=== PATIENT | male | born 1985 | race American Indian/Alaskan Native ===

== ENCOUNTER 2022-08-12 16:57 | Emergency (ER) | payer SELFPAY ==
[2022-08-12] MEDS ORDERED: SODIUM CHLORIDE 0.9% 1000 ML 1,000 ML IV ONE ×2 (17:09)
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
[2022-08-12] MEDS ORDERED: ceFAZolin/NS 2 GM/100 ML 2 GM/100 ML BAG IV ONE (17:22)
[2022-08-12] MEDS ORDERED: TETANUS,DIPH,PERTUSS(ACELL) VACCINE 0.5 ML SYRINGE IM ONE (17:22)
[2022-08-12] MEDS ORDERED: HYDROmorphone 1 MG/1 ML INJ IV ONE (17:27)
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
[2022-08-12 17:39] LABS: Hematocrit 38.1 % (35.5-45.6); Hemoglobin 12.2 gm/dl (11.8-15.2); Mean Corpuscular HGB Conc 32 % (32-34); Mean Corpuscular Volume 91 fl (84-94); Platelet Count 304 K/mm3 (140-440); Red Cell Distribution Width 13.1 % (13.2-15.2)
[2022-08-12 17:56] LABS: Alanine Aminotransferase 11 units/L (7-56); Albumin 4.7 g/dL (3.9-5); BUN/Creatinine Ratio 10; Blood Urea Nitrogen 11 mg/dL (9-20); Calcium 9.3 mg/dL (8.4-10.2); Hemolysis Index 3
[2022-08-12 19:08] VITALS: BP 131/78
== END 2022-08-12 19:08 | disposition short-term general hospital (02) ==
LOC: ED 16:57
DX: S31.33XA Puncture wound without foreign body of scrotum and testes, initial encounter (principal); S71.132A Puncture wound without foreign body, left thigh, initial encounter; I95.9 Hypotension, unspecified; W34.09XA Accidental discharge from other specified firearms, initial encounter; Y93.89 Activity, other specified; Y92.89 Other specified places as the place of occurrence of the external cause; Y99.8 Other external cause status
CPT/HCPCS: 36415; 73552; 80053; 85027; 86850; 86900; 86901; 90471; 90715; 96361; 96365; 96375; 99291; J1170; 99284